=== PATIENT | female | born 1995 | race Caucasian/White ===

== ENCOUNTER 2017-04-03 11:36 | Emergency (ER) | payer BC ==
[~2017-04-03] VITALS: Ht 172.7 cm; Wt 69.7 kg
[2017-04-03 11:55] VITALS: TEMP 36.8; Ht 172.7 cm; Wt 69.7 kg
[2017-04-03 14:00] LABS: BASO % 0.4 %; BASO ABS # 0.04 K/uL (0-0.2); COMPLETE YES; EOS % 2.7 %; HEMATOCRIT 40.2 % (37-47); IG% 0.2 %; LYMPH % 36.5 %; LYMPH ABS # 3.72 K/uL (1.2-3.4); MEAN CELL VOLUME 83.9 fL (80-100); MEAN CORPUSCULAR HEMOGLOBIN 27.8 pg (25-34); MEAN CORPUSCULAR HGB CONC 33.1 g/dl (32-36); MEAN PLATELET VOLUME 10.7 fL (7.4-10.4); MONO % 6.5 %; NEUT % 53.7 %; PLATELET COUNT 264 K/uL (130-400); RED BLOOD COUNT 4.79 M/uL (4.2-5.4)
[2017-04-03 14:10] VITALS: PULSE 75; O2SAT 96
[2017-04-03 14:12] LABS: PARTIAL THROMBOPLASTIN RATIO 1.1
[2017-04-03 14:20] LABS: URINE APPEARANCE CLEAR (CLEAR); URINE BILIRUBIN NEG (NEG); URINE COLOR YELLOW; URINE NITRITE NEG (NEG); URINE PH 5.5 (4.5-7.5); URINE SPECIFIC GRAVITY 1.016 (1.000-1.030); UROBILINOGEN NEG (NEG)
[2017-04-03 14:25] LABS: PREG INTERNAL NEGATIVE QC NEG CLEAR BACKGROUND; PREG INTERNAL POSITIVE QC POS CONTROL LINE
[2017-04-03 14:26] LABS: MANUAL MICROSCOPIC REQUIRED? NO; REVIEW REQ? NO
--- NOTE | 2017-04-03 15:59 | DIAGNOSTIC IMAGING REPORT ---
ULTRASOUND OF THE PELVIS CLINICAL HISTORY: Pelvic bleeding. COMPARISON STUDY: No priors. TECHNIQUE: Real-time, grayscale, and color flow sonography of the pelvis is performed both transabdominally and endovaginally. Images are reviewed in the transverse and longitudinal planes. FINDINGS: Uterus: The retroverted uterus is normal in size and echotexture, measuring 7.5 x 3.7 x 4.9 cm. Endometrium: The endometrium is normal in appearance, and the endometrial stripe is normal in thickness measuring up to 0.5 cm. An intrauterine device is in place. Ovaries: The ovaries are normal in size and morphology. The right ovary measures 3.2 x 1.6 x 2.7 cm and the left ovary measures 3.2 x 1.7 x 2.3 cm. There are small bilateral ovarian follicles. Normal Doppler waveforms are shown within both ovaries. Pelvis: There is no free fluid in the cul-de-sac. No concerning adnexal lesion is seen. IMPRESSION: Unremarkable sonographic assessment of the pelvis noting an intrauterine device in place. Electronically signed by: Melquiades Curran M.D. 04/03/2017 3:24 PM Dictated Date/Time: 04/03/2017 3:22 PM
[2017-04-03 16:00] VITALS: BP 115/73
--- NOTE | 2017-04-04 15:31 | EMERGENCY ROOM VISIT NOTE ---
ED Visit Note First contact with patient: 12:45 Chief Complaint: I have been having some vaginal bleeding and pelvic pain. History of Present Illness: Ms. Hawkins is a 22-year-old white female who ambulates into the ED complaining of vaginal bleeding and left-sided pelvic pain. Patient denies any previous significant neurological conditions or surgeries. She does report in late 2014 in IUD was placed; she reports at that time no pelvic examination was done. Since the IUD was placed she reports intermittently she has some mild pelvic discomfort and has seen an occasional episode of dark bleeding. Patient reports approximately one hour ago shortly after arising from sleep she went to the bathroom and when she wiped herself noted a small amount of bright red blood on the toilet tissue. She continued to sit on the toilet seat she noted a few drops of blood from the vagina into the toilet. She went on to note that she started experiencing pain in the left pelvis. She describes her pain as a tearing sensation. She rates her discomfort 1/10. Her pain is nonradiating. Her pain worsens with palpation. She has not identified any alleviating factors related to the pain. She has not taken any medications for pain prior to arrival at the hospital. She denies any associated symptoms with her pain and bleeding. She does report she was sexually active this past weekend with a boyfriend and she had no vaginal bleeding, post coital bleeding or postcoital pain. Additionally she denies fevers, chills, sweats, skin eruptions, skin color changes, upper abdominal pain, nausea, vomiting, diarrhea, constipation, urinary symptoms, hematuria, vaginal discharge. Review of Systems: As noted above in history of present illness. 8 body systems were reviewed and found to be negative as noted above. Past Medical History: As previously noted and status post appendectomy. Current Medications: Patient denies. Allergies to Medications: Patient denies. Social History: Patient is currently University student; she feels safe in her home environment; she denies tobacco use. Physical Examination: Vital Signs: Date Time Temp Pulse Resp B/P (MAP) Pulse Ox O2 Delivery O2 Flow Rate FiO2 04/03/17 16:00 115/73 04/03/17 14:10 75 16 125/72 96 Room Air 04/03/17 11:55 36.8 82 18 126/79 96 Room Air GENERAL: 22-year-old female in no acute distress, nontoxic-appearing, afebrile and hemodynamically stable. NEUROLOGICAL: Awake, alert and oriented to person, place and time. Answering questions appropriately and following commands. SKIN: Warm, dry and pink. HEENT: Atraumatic and normocephalic. PERRLA. Sclera white and conjunctiva pink. Oral cavity moist and pink. Speech normal. BACK: No tenderness over the bony spine. No CVA tenderness. THORAX: Lungs sounds are clear to auscultation and equal bilaterally with symmetrical chest wall. ABDOMEN: Flat, soft and nontender. Positive bowel sounds in all quadrants. No guarding, rigidity or organomegaly. PELVIC: External genitalia: Shaved hair over labia without erythema or edema. No vulva ulcers, vesicles or erythema. Bartholin's, [place]'s and urethral glands without discharge, erythema or palpable masses. Urethra without discharge or inflammation. Introitus well supported. No cystocele, urethrocele, or enterocele. Anus without hemorrhoids, discharge or skin tags. Speculum exam: Vagina pink, mucosa not atrophy. Cervix 2 cm in diameter with a small os and around without lesions. Small amount of blood noted over the oz without active bleeding. No IUD string present. There is also small amount of blood in the posterior vaginal vault. Bimanual exam: Deferred Rectovaginal exam: Deferred. EXTREMITIES: Moves all extremities well on command and with purpose. All distal neurovascular statuses are intact and equal bilaterally. ED Course: Patient is assessed as noted above. Patient's medication list was reviewed. Laboratory Testing: Test 04/03/17 13:45 Range/Units White Blood Count 10.20 4.8-10.8 K/uL Red Blood Count 4.79 4.2-5.4 M/uL Hemoglobin 13.3 12.0-16.0 g/dL Hematocrit 40.2 37-47 % Mean Corpuscular Volume 83.9 80-100 fL Mean Corpuscular Hemoglobin 27.8 25-34 pg Mean Corpuscular Hemoglobin Concent 33.1 32-36 g/dl Platelet Count 264 130-400 K/uL Mean Platelet Volume 10.7 7.4-10.4 fL Neutrophils (%) (Auto) 53.7 % Lymphocytes (%) (Auto) 36.5 % Monocytes (%) (Auto) 6.5 % Eosinophils (%) (Auto) 2.7 % Basophils (%) (Auto) 0.4 % Neutrophils # (Auto) 5.48 1.4-6.5 K/uL Lymphocytes # (Auto) 3.72 1.2-3.4 K/uL Monocytes # (Auto) 0.66 0.11-0.59 K/uL Eosinophils # (Auto) 0.28 0-0.5 K/uL Basophils # (Auto) 0.04 0-0.2 K/uL RDW Standard Deviation 38.7 36.4-46.3 fL RDW Coefficient of Variation 12.7 11.5-14.5 % Immature Granulocyte % (Auto) 0.2 % Immature Granulocyte # (Auto) 0.02 0.00-0.02 K/uL Prothrombin Time 11.0 9.0-12.0 SECONDS Prothromb Time International Ratio 1.0 0.9-1.1 Activated Partial Thromboplast Time 27.8 21.0-31.0 SECONDS Partial Thromboplastin Ratio 1.1 Urine Color YELLOW Urine Appearance CLEAR CLEAR Urine pH 5.5 4.5-7.5 Urine Specific [place] 1.016 1.000-1.030 Urine Protein NEG NEG Urine Glucose (UA) NEG NEG Urine Ketones NEG NEG Urine Occult Blood 1+ NEG Urine Nitrite NEG NEG Urine Bilirubin NEG NEG Urine Urobilinogen NEG NEG Urine Leukocyte Esterase NEG NEG Urine WBC (Auto) 0 0-5 /hpf Urine RBC (Auto) 0-4 0-4 /hpf Urine Hyaline Casts (Auto) 0 0-5 /lpf Urine Epithelial Cells (Auto) 10-20 0-5 /lpf Urine Bacteria (Auto) NEG NEG Human Chorionic Gonadotropin, Qual NEG NEG Pelvic Ultrasound: Was reviewed by myself and read by the radiologist and shows unremarkable sonograph assessment of the pelvis noted the intrauterine device is in place. Patient was offered pain medications and refused. Patient was reassessed multiple times during her stay in the emergency department. Patient was educated about today's findings and instructed on her treatment plan ; she verbalized understanding and agreement with this plan. Clinical Impression: Pelvic pain. Vaginal bleeding. Decision-Making: Initially my differential diagnosis I considered ectopic , ovarian cyst rupture, PID, traumatic removal of IUD, ovarian torsion and other causes. Disposition: Patient discharged home in stable condition; prior to departure she was reassessed and subjectively reported she was feeling the same but rated her discomfort 3/10. Plan: Patient was encouraged use 600 mg of ibuprofen or 650 mg of acetaminophen every 6 hours as needed for pain or alternate every 3 hours. Patient is encouraged to have vaginal rest until followed up with gynecology. Patient was encouraged to keep a pad count. Patient was encouraged to contact her hr analyst and request follow-up care and treatment. Patient was encouraged return ED for worsening/uncontrolled pain, worsening/ uncontrolled bleeding, fevers or any new/concerning symptoms.
== END 2017-04-03 16:14 | disposition home or self-care (01) ==
LOC: C.EDB 11:38 → C.EDD 16:14
DX: N93.9 Abnormal uterine and vaginal bleeding, unspecified (principal); R10.2 Pelvic and perineal pain; Z97.5 Presence of (intrauterine) contraceptive device

== ENCOUNTER → 2017-07-04 | Outpatient (CLI) | payer BC ==
[2017-07-07 02:42] LABS: CHLAMYDIA TRACH RNA*** DETECTED (NOT DETECTED); GC (NEIS GONORRHOEAE)RNA** NOT DETECTED (NOT DETECTED)
== END | disposition home or self-care (01) ==
LOC: C.LAB1850 11:00
PROVIDERS: ATTEND Physician Assistant
DX: Z11.3 Encounter for screening for infections with a predominantly sexual mode of transmission (principal)

== ENCOUNTER → 2017-07-04 | Outpatient (CLI) | payer BC | END | disposition home or self-care (01) | LOC: C.PAPS 14:08 | PROVIDERS: ATTEND Physician Assistant | DX: Z01.419 Encounter for gynecological examination (general) (routine) without abnormal findings (principal) ==

== ENCOUNTER → 2017-07-11 | Outpatient (CLI) | payer BC ==
--- NOTE | 2017-07-11 16:02 | MAMMOGRAPHY REPORT ---
ULTRASOUND OF BOTH BREASTS: 07/11/2017 CLINICAL HISTORY: 22-year-old woman presents after her provider felt a 3 cm superficial mass in the 1 2:00 right breast on recent physical exam. The patient pointed out the area of lump as the 8:00 axis and therefore both areas were assessed with ultrasound. COMPARISON: No prior exams were available for comparison. FINDINGS: On palpation, a firm 3 cm ovoid multilobulated firm area is identified in the 12:00 right breast periareolar region through 3 cm from the nipple. On ultrasound, there is heterogeneous echote xture fatty and dense glandular tissue extending close to the dermis in the area of palpable lump. T hroughout the remainder of the lateral right breast with particular attention to the area pointed out by the patient in the 8:00 axis, sonographically normal dense glandular tissue is seen without a josé luis picious solid or cystic mass. IMPRESSION: ACR BI-RADS CATEGORY 2: BENIGN There is no sonographic evidence of malignancy or suspicious abnormality to explain the palpable lump in the 12:00 right breast or in the 8:00 right breast. Therefore, clinical follow-up is recommended , as biopsy of a clinically suspicious mass should not be precluded by negative imaging. These results and recommendations were discussed with the patient at the time of the exam. Adrianna Wyatt M.D. ay/:07/11/2017 11:12:45 Solar Tech: Dr. Adrianna Wyatt, [facility] letter sent: Normal 1/2 BI-RADS Code: ACR BI-RADS Category 2: Benign
== END | disposition home or self-care (01) ==
LOC: C.MAMM 10:01
PROVIDERS: ATTEND Physician Assistant
DX: N63.10 Unspecified lump in the right breast, unspecified quadrant (principal)

== ENCOUNTER → 2017-10-16 | Outpatient (CLI) | payer BC | END | disposition home or self-care (01) | LOC: C.LABSPEC 17:34 | PROVIDERS: ATTEND Physician Assistant | DX: A74.9 Chlamydial infection, unspecified (principal) ==